=== PATIENT | male | born 1980 | race Caucasian/White ===

== ENCOUNTER → 2016-11-18 | Outpatient (CLI) | payer OTHER ==
--- NOTE | 2016-11-18 13:06 | Diagnostic Imaging Report ---
Indication: Probable mass in right upper arm Technique: Grayscale and duplex images Comparison: None Findings: Grayscale and duplex images of the right are performed demonstrate within the subcutaneous fat and 8 x 5 mm mass which is slightly hyperechoic relative to the adjacent subcutaneous fat. It is not hypervascular Impression: Hyperechoic 8 x 5 mm mass in the subcutaneous fat of the right upper arm, corresponding to palpable abnormality. Appearance suggestive of old not completely diagnostic for a lipoma. Should the lesion enlarge, consideration should be given for MRI or CT scan for more specific characterization
== END | disposition home or self-care (01) ==
LOC: ULS 09:34
DX: D17.21 Benign lipomatous neoplasm of skin and subcutaneous tissue of right arm (principal)
CPT/HCPCS: 76882